=== PATIENT | male | born 1960 | race Caucasian/White ===

== ENCOUNTER 2016-08-27 06:42 | Day surgery (SDC) | payer MEDICAID ==
[~2016-08-27 06:42] MED LIST: ACETAMINOPHEN500 M1 PO; ACETAMINOPHEN500 MG; ALL DAY ALLERGY10 M2 PO; CLONAZEPAM1 M2 PO; CLONAZEPAM1 MG PO; DILANTIN; DILANTIN100 M1 PO; DILANTIN100 MG; DILANTIN100 MG PO; ENSURE; KLONOPIN0.5 MG; LAMICTAL150 M1 PO; LAMICTAL150 MG; LAMICTAL150 MG PO; PHENOBARBITAL32.4 MG; PHENOBARBITAL64.8 M1 PO; PHENOBARBITAL64.8 MG PO; PRILOSEC20 M1 PO; PRILOSEC20 MG; PRILOSEC20 MG PO; REMERON15 M1 PO; REMERON15 MG PO; THERAPEUTIC M1 EAC1 PO; THERAPEUTIC PO; TYLENOL EXTRA500 M1 PO; UNICOMPLEX-M1 TAB; ZOLPIDEM TARTRA10 M1 PO; ZOLPIDEM TARTRA10 M2 PO; ZONEGRAN100 M2 PO; ZONEGRAN100 MG PO; [UNRECOGNIZED DRUG - REMARK]; [UNRECOGNIZED DRUG - REMARK] PO
[2016-08-27] MEDS ORDERED: DILANTIN100 M1 PO (07:28)
== END 2016-08-27 11:40 ==
LOC: SHSC 06:42 → ORE 09:02 → PACU 10:04 → SHSC 10:30
PROC: 0CQXXZ2 Repair of Lower Tooth, All, External Approach (ICD-10-PCS; principal; 2016-08-27)
PROC: 0CQWXZ2 Repair of Upper Tooth, All, External Approach (ICD-10-PCS; 2016-08-27)
DX: K03.6 Deposits [accretions] on teeth (principal); K05.10 Chronic gingivitis, plaque induced; G40.909 Epilepsy, unspecified, not intractable, without status epilepticus; F41.9 Anxiety disorder, unspecified; G80.9 Cerebral palsy, unspecified; M17.9 Osteoarthritis of knee, unspecified; Z88.8 Allergy status to other drugs, medicaments and biological substances; Z98.890 Other specified postprocedural states
CPT/HCPCS: J2405